=== PATIENT | male | born 1955 | race Caucasian/White ===

== ENCOUNTER 2019-05-11 21:47 | Inpatient (IN) | payer MEDICARE, OTHER ==
[~2019-05-11] VITALS: Ht 180.3 cm; Wt 119.7 kg
[~2019-05-11 21:47] MED LIST: ACET-2154 PO; ASPI-605 PO; ATOR20TA PO; FERR-38 PO; LANTUS INSULIN SQ; LISI10TA5 PO; LOSA50TA39 PO; MULT-331 PO; TRAM50TA2 PO
--- NOTE | 2019-05-11 22:04 | NUR ---
PATIENT ERICA AMBULANZ UNIT 113 FROM [facility] ON A 5150 HOLD FOR GD. HERE FOR MEDICAL CLEARANCE. PATIENT AAOX4. DENIES ANY PAIN OR SOB. NAD. NO CARDIOVASCULAR CONCERN. NO GI/ CONCERN. BED ON LOW AND LOCK POSITION. FALL PRECAUTION INITIATED.
[2019-05-11 22:11] LABS: BASOPHILS # (AUTO) 0.1 K/uL (0.0-8.0); BASOPHILS % (AUTO) 1.3 % (0.0-2.0); EOSINOPHILS # (AUTO) 0.6 K/uL (0.0-0.7); EOSINOPHILS % (AUTO) 5.4 % (0.0-7.0); HEMATOCRIT 36.7 % (36.7-47.1); LYMPHOCYTES # (AUTO) 2.4 K/uL (20.0-40.0); LYMPHOCYTES % (AUTO) 20.2 % (20.5-51.5); MEAN CORPUSCULAR HEMOGLOBIN 26.9 uug (23.8-33.4); MEAN CORPUSCULAR HGB CONC 33 g/dL (32.5-36.3); MEAN CORPUSCULAR VOLUME 82.4 fL (73.0-96.2); MONOCYTES # (AUTO) 0.8 K/uL (2.0-10.0); MONOCYTES % (AUTO) 6.8 % (0.0-11.0); NEUTROPHILS # (AUTO) 7.8 K/uL (1.8-8.9); NEUTROPHILS % (AUTO) 66.3 % (38.5-71.5); PLATELET COUNT (AUTO) 279 K/uL (152-348); RED BLOOD CELL COUNT(AUTO) 4.46 MIL/uL (4.06-5.63); WHITE BLOOD COUNT (AUTO) 11.8 K/uL (3.6-10.2)
[2019-05-11 22:27] LABS: CARBON DIOXIDE 20 mmol/L (21-32); CHLORIDE 107 mmol/L (98-107); CREATININE 3.9 mg/dL (0.6-1.3); GLUCOSE 276 mg/dL (74-106); POTASSIUM 4.3 mmol/L (3.5-5.1); UREA NITROGEN, BLOOD 45 mg/dL (7-18)
[2019-05-11 22:30] LABS: ETHANOL < 3 MG/DL (0-0)
[2019-05-11 22:33] LABS: ALANINE AMINOTRANSFERASE 18 U/L (16-63); ALKALINE PHOSPHATASE 87 U/L (50-136); ASPARTATE AMINOTRANSFERASE 9 U/L (15-37); BILIRUBIN,DIRECT < 0.1 mg/dL (0.0-0.2); BILIRUBIN,TOTAL 0.2 mg/dL (0.2-1.0); TOTAL PROTEIN, SERUM 6.7 g/dL (6.4-8.2)
[2019-05-11] MEDS ORDERED: NICO-672 TD (22:33)
[2019-05-11] MEDS ORDERED: TRAM50TA PO (22:33)
[2019-05-11] MEDS ORDERED: MAGN400T6 PO (22:33)
[2019-05-11] MEDS ORDERED: ATOR40TA PO (22:33)
[2019-05-11] MEDS ORDERED: GABA400C PO (22:33)
[2019-05-11] MEDS ORDERED: DIPH25TA62 PO (22:33)
[2019-05-11] MEDS ORDERED: DIPH1TAB PO (22:33)
[2019-05-11] MEDS ORDERED: VIT1TABL46 PO (22:33)
[2019-05-11] MEDS ORDERED: SODI650T PO (22:33)
[2019-05-11] MEDS ORDERED: DOCU250C14 PO (22:33)
[2019-05-11] MEDS ORDERED: AMLO10TA4 PO (22:33)
[2019-05-11] MEDS ORDERED: GLIP10TA11 PO (22:33)
[2019-05-11] MEDS ORDERED: LOSA50TA39 PO (22:33)
[2019-05-11] MEDS ORDERED: ACET-2154 PO (22:33)
[2019-05-11] MEDS ORDERED: MELA3TAB PO (22:33)
[2019-05-11] MEDS ORDERED: BLOO-140 IN (22:33)
[2019-05-11 22:41] LABS: *BILIRUBIN,URIN NEGATIVE (NEGATIVE); *BLOOD, URINE 2+ (NEGATIVE); *CLARITY,URINE CLOUDY (CLEAR); *COLOR,URINE YELLOW (YELLOW); *KETONES,URINE TRACE (NEGATIVE); *UROBILINOGEN,URINE 0.2 E.U./dl (NORMAL); LEUKOCYTE ESTERASE ,URINE NEGATIVE (NEGATIVE); NITRITE, URINE NEGATIVE (NEGATIVE)
[2019-05-11 22:43] LABS: ACETAMINOPHEN < 2.0 ug/mL (10-30)
[2019-05-11 22:46] LABS: UGLUCOSE 2+ (NEGATIVE)
[2019-05-11 22:51] LABS: WBC,URINE 80-100 /HPF (0-3)
--- NOTE | 2019-05-11 22:51 | NUR ---
RT ON BEDSIDE FOR ABG.
[2019-05-11 22:52] LABS: BACTERIA,URINE FEW /HPF (NONE SEEN); SQUAMOUS EPITHELIAL CELL,UR FEW /HPF (NONE SEEN)
[2019-05-11 22:55] LABS: *AMPHETAMINE, URINE NEGATIVE (NEGATIVE); *BARBITURATE, URINE NEGATIVE (NEGATIVE); *CANNABINOID, URINE NEGATIVE (NEGATIVE); *COCCAINE, URINE NEGATIVE (NEGATIVE); *OPIATE, URINE NEGATIVE (NEGATIVE); *PHENCYCLIDINE SCREEN,URINE NEGATIVE (NEGATIVE)
[2019-05-11] MEDS ORDERED: INSULIN REGULAR, HUMAN 300 UNIT/3 ML VIAL ONE (23:00)
[2019-05-11] MEDS ORDERED: INSULIN REGULAR, HUMAN 300 UNIT/3 ML VIAL SQ ONE (23:00)
[2019-05-11 23:10] LABS: ABG BASE EXCESS -4.3 mmol/L; ABG HCO3 18.6 mmol/L; ABG PCO2 28.9 mmHg (35.0-45.0); ABG PH 7.426 (7.350-7.450); ABG PO2 83.6 mmHg (75.0-100.0); ABG SITE RIGHT RADIAL
--- NOTE | 2019-05-11 23:15 | NUR ---
TELEPHONE CALL TO [facility] FOR PANEL CALL, PLATFORM ARCHITECT DR. JEWELL. WAITING FOR RETURN CALL.
[2019-05-11] MEDS ORDERED: CEFTRIAXONE 1 G VIAL ONE (23:26)
[2019-05-11] MEDS ORDERED: CEFTRIAXONE 1 G VIAL IM ONE (23:30)
--- NOTE | 2019-05-11 23:42 | NUR ---
PAGED DR. JEWELL AGAIN. AWAITING FOR RETURN CALL.
--- NOTE | 2019-05-12 00:05 | NUR ---
Telephone call to [facility] for Panel call to Dr. Travis. Awaiting for return call.
--- NOTE | 2019-05-12 00:22 | NUR ---
Telephone call to [facility] for Panel call to Dr. Travis again. Awaiting for return call.
--- NOTE | 2019-05-12 00:26 | NUR ---
DR. BEVERLY CALLED BACK, SPEAKING WITH DR. GARCIA AT THIS TIME.
--- NOTE | 2019-05-12 00:39 | NUR ---
REPORT GIVEN TO U NURSE LU. PATIENT WILL BE ADMITTED ON MHU 139B.
[2019-05-12] MEDS ORDERED: MAG HYDROX/AL HYDROX/SIMETH 30 ML LIQUID UDC PO PRN (01:30)
[2019-05-12] MEDS ORDERED: TEMAZEPAM 7.5 MG CAPSULE PO PRN (01:30)
[2019-05-12] MEDS ORDERED: LORAZEPAM 0.5 MG TABLET PO PRN (01:30)
[2019-05-12] MEDS ORDERED: MAGNESIUM HYDROXIDE 30 ML LIQUID UDC PO PRN (01:30)
[2019-05-12] MEDS ORDERED: ACETAMINOPHEN 325 MG TABLET PO PRN ×2 (01:30→01:45)
--- NOTE | 2019-05-12 01:33 | NUR ---
Pt. admitted to MHU, under care of Dr. Wheatley, room 139B. Belongings list completed.
[2019-05-12] MEDS ORDERED: diphenhydrAMINE 25 MG CAP PO PRN (01:45)
[2019-05-12] MEDS ORDERED: DIPHENOXYLATE HCL/ATROP SULF TABLET PO PRN (01:45)
[2019-05-12] MEDS ORDERED: TRAMADOL HCL 50 MG TABLET PO PRN (01:45)
[2019-05-12] MEDS ORDERED: OLANZAPINE 10 MG VIAL IM STA (02:03)
[2019-05-12] MEDS ORDERED: LEVOFLOXACIN 250 MG TABLET PO SCH (02:30)
[2019-05-12 02:31] VITALS: BP 170/86
--- NOTE | 2019-05-12 03:30 | NUR ---
Admission/Chemical Restraint Note: 63 y.o. male brought to MHU from ER via gurney, accompanied by ER staff. Pt admitted on a 5150 for GD under the care of Dr Wheatley and Commutator Tester Thaddeus. According to the 5150, Pt acknowledges "blowing up" at caregivers earlier and also acknowledging that he is paranoid that "everyone in [place] knows about me and they all mistreat me." Pt requires caregiver assistance due to medical concerns, but states, "I can go back to the streets [place] I lived for years," however Pt is unable to ambulate. Pt states, "I'll get by." Pt paranoid that everyone just wants to "keep me locked up for my money." Pt non-compliant with care and attempts to walk without assistance against MD orders. Upon admission to the unit, Pt is A+Ox3, BP elevated, Pt refused anti-hypertensive medication, no c/o pain. Advisement and Patient rights handbook given and explained to Pt. Upon face to face evaluation, Pt was initially cooperative, though paranoid, and stated he was here "because they lied about me to get me in here. The doctors all lied about me." Pt exhibits poor insight and impaired judgment. Pt was angry, irritable, and hyperverbal with pressured speech. Delusional, Pt states that "everyone wants to steal my things, all the doctors are in kahoots to get me out of there." While staff was attempting to complete his extensive inventory, Pt became loud and yelling, demanding that he not be from any of his items. Pt was educated on unit rules and safety, and also the fact that there is not enough room to keep all of his items with him, but placed in storage. Pt became more agitated, and began verbally abusing and threatening staff with physical harm. Pt became physically aggressive pounding on the table screaming obscenities. Prn offered and refused, 1:1 interaction and redirection attempted without success. Security was called to de-escalate the situation and Dr Wheatley notified of Pt combative behavior. Zyprexa 10mg IM ordered. Pt was educated about IM administration and asked if he would be cooperative during the process for his safety as well as the safety of staff. Pt responded, "Fuck you crazy lady, I'm going to fuck you up and you are not giving me that shot!" Extra staff called in from ER to assist with IM administration to ensure safety. Hands placed on Pt for leass then 2 minutes during IM, no injury to staff or Pt. Within 20 minutes, Pt was able to calm and verbally contract for safety, Pt stable and breathing even and unlabored. Skin assessment completed with licensed staff-(R) toe amputation with scabs noted, and dry flaky skin with redness noted to (L) foot. Medical h/o DM, HTN, PVD, CKD, paranoid schizophrenia, anemia, HLD, and HF, bipolar d/o, and UTI, with NKA. Dr Wheatley and Commutator Tester Thaddeus notified of admission, meds reconciled, orders received. Pt belongings inventoried, contraband placed in unit locker(s). Refused PNA vaccination. Pt refused to provide contact info for any family to be notified. Pt refused unit orientation, remains uncooperative. Pt unable ambulate, requires max assist. Q 15 minute safety checks initiated, will continue to monitor.
--- NOTE | 2019-05-12 05:37 | NUR ---
Left message for Dr Travis to reconcile sliding scale. Awaiting call back.
[2019-05-12] MEDS ORDERED: DEXTROSE 50% 50 ML DISP.SYRIN IV PRN (05:45)
--- NOTE | 2019-05-12 06:57 | NUR ---
PT SIGNED THE BELONGING LIST. PT ACKNOWLEDGED THAT HE HAS HIS MONEY WITH HIM . HE DOESN'T WANT TO MAKE NOTES THAT HE WILL BE RESPONSIBLE FOR IT BECAUSE HE WANTS IT WITH HIM. HE SAID HE SIGNED A LOT ALREADY. CHARGE NURSE AWARE,. MONEY WITH THE PT. WILL ENDORSE TO DAYSHIFT NURSE.
[2019-05-12] MEDS: BLOOD SUGAR DIAGNOSTIC 1 EACH STRIP VI SCH ×4 (07:19→20:16)
[2019-05-12] MEDS ORDERED: GABAPENTIN 400 MG CAPSULE PO SCH (09:00)
[2019-05-12] MEDS ORDERED: NICOTINE 21 MG/24HR PATCH TD SCH (09:00)
[2019-05-12] MEDS: DOCUSATE SODIUM 250 MG CAPSULE PO SCH ×2 (09:23→16:30)
[2019-05-12] MEDS: FERROUS SULFATE 325 MG TABEC PO SCH (09:23)
[2019-05-12] MEDS: FOLIC ACID/VITAMIN B COMP W-C TABLET PO SCH (09:23)
[2019-05-12] MEDS: SODIUM BICARBONATE 650 MG TABLET PO SCH ×3 (09:24→16:30)
[2019-05-12] MEDS: AMLODIPINE 10 MG TABLET PO SCH (09:24)
[2019-05-12] MEDS: MAGNESIUM OXIDE 400 MG TABLET PO SCH (09:24)
[2019-05-12] MEDS: glipiZIDE 10 MG TABLET PO SCH ×2 (09:24→16:30)
[2019-05-12] MEDS: LOSARTAN POTASSIUM 50 MG TABLET PO SCH (09:25)
[2019-05-12] MEDS: NICOTINE 7 MG/24HR PATCH TD SCH ×2 (09:53→09:58)
--- NOTE | 2019-05-12 10:42 | NUR ---
Patient care will be endorse to HANNAH Madrigal who will continue with care plan.
[2019-05-12 11:07] VITALS: BP 184/99
[2019-05-12] MEDS: INSULIN REGULAR, HUMAN 300 UNIT/3 ML VIAL SQ PRN ×3 (12:09→20:19)
[2019-05-12 15:48] VITALS: BP 187/91
[2019-05-12] MEDS ORDERED: LORAZEPAM 1 MG TABLET PO PRN (16:00)
[2019-05-12 16:38] VITALS: BP 150/80
[2019-05-12 16:48] VITALS: BP 150/80
[2019-05-12] MEDS ORDERED: QUETIAPINE FUMARATE 25 MG TABLET PO SCH (17:00)
[2019-05-12 20:05] VITALS: BP 137/75
[2019-05-12] MEDS: GABAPENTIN 400 MG CAPSULE PO SCH (20:16)
[2019-05-12] MEDS: ATORVASTATIN 40 MG TABLET PO SCH (20:16)
--- NOTE | 2019-05-12 20:58 | NUR ---
GPS: Rec'd patient in bed asleep, no s/s of acute distress noted. Easily arousable to name. Took all due HS meds and allowed FSBS check with insulin coverage. No s/s of hypo/hyperglycemia at this time. No episode of paranoia regarding his money or any combative/aggressive behavior at this time. Dry dressing to right toes in place clean/dry/intact. Denies pain. All safety precautions in place. Will cont to monitor.
[2019-05-12] MEDS ORDERED: MELATONIN 3 MG TABLET PO SCH (21:00)
[2019-05-12] MEDS ORDERED: QUETIAPINE FUMARATE 100 MG TABLET PO SCH ×2 (21:00)
[2019-05-13] MEDS ORDERED: LEVOFLOXACIN 250 MG TABLET PO SCH (01:45)
[2019-05-13] MEDS: BLOOD SUGAR DIAGNOSTIC 1 EACH STRIP VI SCH ×4 (06:37→20:44)
[2019-05-13 07:29] LABS: BASOPHILS # (AUTO) 0.1 K/uL (0.0-8.0); BASOPHILS % (AUTO) 0.6 % (0.0-2.0); EOSINOPHILS # (AUTO) 0.7 K/uL (0.0-0.7); EOSINOPHILS % (AUTO) 5.8 % (0.0-7.0); HEMATOCRIT 38.9 % (36.7-47.1); HEMOGLOBIN 12.7 g/dL (12.5-16.3); LYMPHOCYTES # (AUTO) 2.4 K/uL (20.0-40.0); LYMPHOCYTES % (AUTO) 20.7 % (20.5-51.5); MEAN CORPUSCULAR HEMOGLOBIN 26.9 uug (23.8-33.4); MEAN CORPUSCULAR HGB CONC 33 g/dL (32.5-36.3); MEAN CORPUSCULAR VOLUME 82.7 fL (73.0-96.2); MONOCYTES # (AUTO) 0.8 K/uL (2.0-10.0); MONOCYTES % (AUTO) 6.8 % (0.0-11.0); NEUTROPHILS # (AUTO) 7.7 K/uL (1.8-8.9); NEUTROPHILS % (AUTO) 66.1 % (38.5-71.5); PLATELET COUNT (AUTO) 272 K/uL (152-348); RED BLOOD CELL COUNT(AUTO) 4.71 MIL/uL (4.06-5.63); WHITE BLOOD COUNT (AUTO) 11.6 K/uL (3.6-10.2)
[2019-05-13 07:30] VITALS: BP 138/79
[2019-05-13 07:49] LABS: BILIRUBIN,TOTAL 0.2 mg/dL (0.2-1.0); CREATININE 3.7 mg/dL (0.6-1.3); MAGNESIUM 1.8 mg/dL (1.8-2.4); PHOSPHOROUS 5.3 mg/dL (2.5-4.9); POTASSIUM 4.7 mmol/L (3.5-5.1); TOTAL PROTEIN, SERUM 6.9 g/dL (6.4-8.2)
[2019-05-13] MEDS: DOCUSATE SODIUM 250 MG CAPSULE PO SCH ×2 (08:17→16:23)
[2019-05-13] MEDS: AMLODIPINE 10 MG TABLET PO SCH (08:17)
[2019-05-13] MEDS: MAGNESIUM OXIDE 400 MG TABLET PO SCH (08:17)
[2019-05-13] MEDS: SODIUM BICARBONATE 650 MG TABLET PO SCH ×3 (08:18→16:23)
[2019-05-13] MEDS: glipiZIDE 10 MG TABLET PO SCH ×2 (08:18→16:23)
[2019-05-13] MEDS: GABAPENTIN 400 MG CAPSULE PO SCH ×2 (08:18→20:35)
[2019-05-13] MEDS: NICOTINE 7 MG/24HR PATCH TD SCH (08:19)
[2019-05-13] MEDS: FERROUS SULFATE 325 MG TABEC PO SCH (08:20)
[2019-05-13] MEDS: FOLIC ACID/VITAMIN B COMP W-C TABLET PO SCH (08:20)
[2019-05-13] MEDS: LOSARTAN POTASSIUM 50 MG TABLET PO SCH (08:21)
[2019-05-13] MEDS ORDERED: QUETIAPINE FUMARATE 25 MG TABLET PO SCH (09:00)
[2019-05-13] MEDS: ARIPIPRAZOLE 5 MG TABLET PO SCH ×2 (09:30→16:23)
--- NOTE | 2019-05-13 09:39 | NUR ---
UR NOTE: vegetable farmworker received "Behavioral Health Authorization Form" from [facility]. vegetable farmworker completed form with requested information and included history & physical and medication list with lab work. vegetable farmworker faxed information to Medicare AND [employer] [[phone]] and placed copy of successful fax return in patient chart. vegetable farmworker awaiting further authorization. Addendum: 05/13/19 at 1116 by WOOD ROSS vegetable farmworker received email from , teller coordinator, providing authorization for patient [AUTHORIZATION#[id number]]. Assigned family independence case manager is NICOLE ROGERS [phone: [phone], ext. [phone]; ]. vegetable farmworker to follow-up with daily clinical update.
[2019-05-13] MEDS ORDERED: DEXTROSE 10 % IN WATER 250 ML IV PRN (09:45)
[2019-05-13] MEDS: INSULIN REGULAR, HUMAN 300 UNIT/3 ML VIAL SQ PRN ×3 (11:25→20:47)
--- NOTE | 2019-05-13 13:17 | NUR ---
Initial Discharge Note: Patient is a 63 year old male who currently resides at [facility] [[address] [place] [address]; ]. Per patient, he does not want to return as he would like an independent living facility. Patient states he has a budget of $700-$800/month. farmworker is attempting to accommodate request and has reached out to placement agent, Myles, at [facility]. farmworker to follow-up with patient regarding status of independent living. farmworker called and spoke with grievance and appeals coordinator, Shona, at the facility who states patient may return when ready for discharge. Patient is agreeable to return to facility if independent facility cannot be secured. farmworker will continue to collaborate with patient and MD on a safe and proper discharge.
[2019-05-13] MEDS: CEphaleXIN 500 MG CAPSULE PO SCH ×2 (13:57→20:35)
[2019-05-13 16:00] VITALS: BP 130/81
--- NOTE | 2019-05-13 16:00 | NUR ---
UR NOTE: personal service workers faxed clinical update to assigned pillowcase sewer, Radha Rodriguez [phone: [phone], ext. [phone]; ], at [facility]. personal service workers received successful fax return and placed in a copy in patient chart. personal service workers to follow-up with daily clinical update. AUTHORIZATION#[id number]
--- NOTE | 2019-05-13 17:51 | NUR ---
GPS: RECEIVED PATIENT AWAKE ON WHEELCHAIR, ABLE TO TRANSFER ONESELF TO THE BED , PATIENT DENIES SI AND HI, COMPLIANT WITH MEDICATION , SEEN BY DR. NATH, WITH DC PLANNING ON SATURDAY, PATIENT WAS PUT ON ISOLATION SECONDARY TO MRSA OF NARES, MADE AWARE, PATIENT AWARE OF THE ISOLATION AND COMPLIANT TO THE ISOLATION , WILL CONTINUE MONITOR
[2019-05-13 20:33] VITALS: BP 160/79
[2019-05-13] MEDS: ATORVASTATIN 40 MG TABLET PO SCH (20:35)
[2019-05-13] MEDS: MUPIROCIN 2% OINT 22 GM TUBE TP SCH (20:36)
[2019-05-14] MEDS: BLOOD SUGAR DIAGNOSTIC 1 EACH STRIP VI SCH ×4 (06:40→20:43)
[2019-05-14 07:30] VITALS: BP 130/100
[2019-05-14] MEDS: MAGNESIUM OXIDE 400 MG TABLET PO SCH (09:01)
[2019-05-14] MEDS: DOCUSATE SODIUM 250 MG CAPSULE PO SCH ×2 (09:01→16:27)
[2019-05-14] MEDS: GABAPENTIN 400 MG CAPSULE PO SCH ×2 (09:01→20:42)
[2019-05-14] MEDS: FERROUS SULFATE 325 MG TABEC PO SCH (09:01)
[2019-05-14] MEDS: CEphaleXIN 500 MG CAPSULE PO SCH ×2 (09:01→20:42)
[2019-05-14] MEDS: ARIPIPRAZOLE 5 MG TABLET PO SCH ×2 (09:01→16:27)
[2019-05-14] MEDS: AMLODIPINE 10 MG TABLET PO SCH (09:02)
[2019-05-14] MEDS: glipiZIDE 10 MG TABLET PO SCH ×2 (09:03→18:12)
[2019-05-14] MEDS: MUPIROCIN 2% OINT 22 GM TUBE TP SCH ×2 (09:03→20:43)
[2019-05-14] MEDS: NICOTINE 7 MG/24HR PATCH TD SCH (09:03)
[2019-05-14] MEDS: SODIUM BICARBONATE 650 MG TABLET PO SCH ×3 (09:04→18:11)
[2019-05-14] MEDS: FOLIC ACID/VITAMIN B COMP W-C TABLET PO SCH (09:04)
[2019-05-14] MEDS: LOSARTAN POTASSIUM 50 MG TABLET PO SCH (09:06)
[2019-05-14] MEDS: INSULIN REGULAR, HUMAN 300 UNIT/3 ML VIAL SQ PRN ×3 (11:28→20:47)
--- NOTE | 2019-05-14 13:50 | NUR ---
UR NOTE: farmworker chicken farm received call from [facility] case manager specialistJerry [phone: , ext. [phone]; fax: ], stating that he is the assigned utilization management casework manager to patient. Per Jerry, the admission has been approved and patient is authorized. The next review will be on 05/18/2019. farmworker chicken farm will follow-up then.
[2019-05-14 16:00] VITALS: BP 155/77
--- NOTE | 2019-05-14 18:18 | NUR ---
GPS; RECEIEVED PATIENT ON BED, ON CONTACT ISOLATION SEC. TO MRSA OF NARES, PATIENT COMPLIANT WITH MEDICATION AND ISOLATION, DENIES PAIN, PATIENT AMBULATES ON WHEELCHAIR WITH FACEMASK , PATIENT IN NO DISTRESS AT THIS TIME, WILL CONTINUE MONITOR
[2019-05-14 20:10] VITALS: BP 161/86
[2019-05-14] MEDS: ATORVASTATIN 40 MG TABLET PO SCH (20:42)
[2019-05-15] MEDS: BLOOD SUGAR DIAGNOSTIC 1 EACH STRIP VI SCH ×2 (06:17→11:37)
[2019-05-15 07:30] VITALS: BP 169/84
[2019-05-15] MEDS: INSULIN REGULAR, HUMAN 300 UNIT/3 ML VIAL SQ PRN ×2 (08:02→11:43)
[2019-05-15] MEDS: ARIPIPRAZOLE 5 MG TABLET PO SCH (08:15)
[2019-05-15] MEDS: CEphaleXIN 500 MG CAPSULE PO SCH (08:15)
[2019-05-15] MEDS: SODIUM BICARBONATE 650 MG TABLET PO SCH ×2 (08:15→12:00)
[2019-05-15] MEDS: glipiZIDE 10 MG TABLET PO SCH (08:15)
[2019-05-15] MEDS: GABAPENTIN 400 MG CAPSULE PO SCH (08:15)
[2019-05-15] MEDS: DOCUSATE SODIUM 250 MG CAPSULE PO SCH (08:15)
[2019-05-15] MEDS: FOLIC ACID/VITAMIN B COMP W-C TABLET PO SCH (08:15)
[2019-05-15] MEDS: MAGNESIUM OXIDE 400 MG TABLET PO SCH (08:15)
[2019-05-15] MEDS: FERROUS SULFATE 325 MG TABEC PO SCH (08:16)
[2019-05-15] MEDS: MUPIROCIN 2% OINT 22 GM TUBE TP SCH (08:16)
[2019-05-15 08:19] VITALS: BP 169/84
[2019-05-15] MEDS: AMLODIPINE 10 MG TABLET PO SCH (08:19)
[2019-05-15] MEDS: LOSARTAN POTASSIUM 50 MG TABLET PO SCH (08:19)
[2019-05-15] MEDS: NICOTINE 7 MG/24HR PATCH TD SCH (08:23)
--- NOTE | 2019-05-15 08:32 | NUR ---
DC NOTE: Patient will be discharged back to [facility] [[address] [facility], [place] [address]; ] and transportation will be provided by ambulance at 1:00pm. Please arrange ambulance transportation for this patient. Acceptance to facility was received by Nataly surgical coordinator, who states they are ready to accept the patient today. Patient is AxOx4, denies suicidal ideation, is able to plan for self-care, and is agreeable with discharge plan. Patient has no next of kin identified to contact at this time. Patient will follow-up with Dr. Wheatley [psychiatrist] and Dr. Marmolejo [roustabout crew] at the facility. Patient has also been provided with mental health resources including [facility] , [facility] , and the National Suicide Prevention Lifeline . Addendum: 05/15/19 at 1221 by WOOD ROSS Patient spoke with this sign writer letterer or painter stating he did not want to return to [facility], despite agreeing to return prior. Patient stated he would like an independent living. facilities maintenance worker agreed. The following information below is patient new discharge plan: Patient has agreed to go to [facility] [[address] [place] [id number]; ] and transportation will be provided by taxi at 3:00pm. Please arrange taxi transportation for this patient. Acceptance to the facility has been provided by Erica Dunne [[phone]], ophthalmologist of facility, who states they are ready to accept the patient today. facilities maintenance worker has called and spoke with Nataly, surgical coordinator at [facility], who states they are agreeable with patient discharge plan. facilities maintenance worker has called and left a voicemail with patient deputy insurance commissioner, Jerry [phone: , ext. [phone]; fax: ], requesting aftercare appointments. facilities maintenance worker will update note when information is received. facilities maintenance worker has provided patient with a list of mental health resources including [facility] [ ], [facility] [ ], and the National Suicide Prevention Lifeline [ ]. facilities maintenance worker has also provided patient with a referral to [facility] [[address] [place] [address]; ] where patient can walk-in for an appointment Saturday thru Saturday anytime between 8:00pm-5:00pm. Patient prescriptions have been called into [facility] [[address], [place]; phone: ].
--- NOTE | 2019-05-15 13:11 | NUR ---
FIREARMS REPORT: field crop farmworker completed and submitted a [employer] firearms report for a 5250 GD certification.
--- NOTE | 2019-05-15 15:10 | NUR ---
CALLED PRESCRIPTIONS TO [facility] ([phone]) AT [address] [place] [address]. SPOKE WITH ALEX. PRESCRIPTIONS FROM DR. MIGUEL AND DR. NATH PROVIDED.
--- NOTE | 2019-05-15 15:35 | NUR ---
PT LEFT UNIT ACCOMPANIED BY RN AND PHOTOLITH OPERATOR TO AWAITING TAXI. LEFT WITH ALL NOTED BELONGINGS, VALUBLES, AND PAPERWORK. DENIES SUICIDAL AND HOMICIDAL IDEATIONS. DENIES PAIN OR DISCOMFORT. IN NO ACUTE DISTRESS.
[2019-05-15] MEDS ORDERED: ARIPIPRAZOLE 5 MG TABLET PO SCH (21:00)
--- NOTE | 2019-05-20 11:52 | NUR ---
UR NOTE: fruit ii farmworker received voicemail from counseling case manager at [facility],Jerry [phone: , ext. [phone]; fax: ], requesting discharge summary. fruit ii farmworker called Jerry back and informed him that there was no discharge summary entered by MD as of now. fruit ii farmworker provided Jerry with discharge prescriptions, discharge location, and discharge diagnosis. Jerry stated that patient has been authorized 3 dyas for MHU stay [05/12/2019-05/15/2019. AUTHORIZATION#[id number]. fruit ii farmworker to follow-up with DC summary when received.
== END 2019-05-15 15:35 | disposition home or self-care (01) | DRG 885 ==
LOC: ER 21:47 → GPS 05-12 01:07
PROVIDERS: ADMIT Psychiatry & Neurology Psychiatry; ATTEND Internal Medicine
DX: F20.0 Paranoid schizophrenia (principal); N18.9 Chronic kidney disease, unspecified; E11.65 Type 2 diabetes mellitus with hyperglycemia; D68.59 Other primary thrombophilia; L97.919 Non-pressure chronic ulcer of unspecified part of right lower leg with unspecified severity; L97.929 Non-pressure chronic ulcer of unspecified part of left lower leg with unspecified severity; F29 Unspecified psychosis not due to a substance or known physiological condition; E11.51 Type 2 diabetes mellitus with diabetic peripheral angiopathy without gangrene; E11.22 Type 2 diabetes mellitus with diabetic chronic kidney disease; I13.10 Hypertensive heart and chronic kidney disease without heart failure, with stage 1 through stage 4 chronic kidney disease, or unspecified chronic kidney disease; Z79.4 Long term (current) use of insulin; E11.40 Type 2 diabetes mellitus with diabetic neuropathy, unspecified; Z74.09 Other reduced mobility; E11.42 Type 2 diabetes mellitus with diabetic polyneuropathy; F17.210 Nicotine dependence, cigarettes, uncomplicated; E78.5 Hyperlipidemia, unspecified; D50.9 Iron deficiency anemia, unspecified
CPT/HCPCS: 36415; 36600; 70030-TC; 71045; 80307; 83605; 83735; 84100; 85025; 87086; 93005; 97110; 97112; 97116; 97530; A4663; A9150; G0480; G0480-TC; J0696; J1815; J2358